=== PATIENT | male | born 1990 | race African-American/Black ===

== ENCOUNTER 2017-05-20 18:10 | Emergency (ER) | payer MEDICAID ==
[~2017-05-20] VITALS: Ht 172.7 cm; Wt 59.0 kg
[2017-05-20 18:20] VITALS: BP_SYST 128
--- NOTE | 2017-05-20 18:25 | NUR ---
Pt placed to ER bed 03, report received from JOSH Bojorquez. Pt c/o fever with back ache and abd pain x 2 days. Pt states that he took benadryl yesterday and Motrin today at 09:00 and fever dropped a "little bit" then came back up. Pt hasn't taken any other medications since. Pt states that he did feel nauseated earlier today. Denies vomiting or diarrhea, no cough.
--- NOTE | 2017-05-20 18:35 | NUR ---
Dr. Villegas at bedside to assess pt.
[2017-05-20] MEDS ORDERED: ONDANSETRON HCL 4 MG/2 ML VIAL IVP ONE (18:45)
[2017-05-20] MEDS ORDERED: ACETAMINOPHEN 500 MG TABLET PO ONE (18:45)
[2017-05-20] MEDS ORDERED: NACL 0.9% 1,000 ML IV ONE (18:45)
--- NOTE | 2017-05-20 19:00 | NUR ---
Pt report given to JOSH Tate.
[2017-05-20 19:13] LABS: HEMATOCRIT 42.4 % (36-54); HEMOGLOBIN 13.9 g/dL (14.0-18.0); LYMPHOCYTES # (AUTO) 0.7 K/uL (1.0-5.5); LYMPHOCYTES % (AUTO) 6.3 % (20.5-51.5); MEAN CORPUSCULAR HEMOGLOBIN 28 pg (27-31); MEAN CORPUSCULAR HGB CONC 33 % (32-36); MEAN CORPUSCULAR VOLUME 84 fL (79.0-98.0); MONOCYTES # (AUTO) 1.2 K/uL (0.0-1.0); MONOCYTES % (AUTO) 10.7 % (1.7-9.3); PLATELET COUNT (AUTO) 144 K/uL (130-430); RED BLOOD CELL COUNT(AUTO) 5.03 MIL/uL (4.2-6.2); RED CELL DISTRIBUTION WIDTH 13.5 % (9.0-15.0); WHITE BLOOD COUNT (AUTO) 11.6 K/uL (4.8-10.8)
[2017-05-20 19:14] LABS: NEUTROPHILS # (AUTO) 9.7 K/uL (1.8-7.7)
[2017-05-20 19:54] LABS: CALCIUM 9.1 mg/dL (8.4-11.0); CREATININE 1.01 mg/dL (0.55-1.30); POTASSIUM 3.9 mmol/L (3.5-5.1)
[2017-05-20 19:58] LABS: ALBUMIN 3.6 g/dL (3.4-4.8); TOTAL BILIRUBIN 0.5 mg/dL (0.0-1.0)
[2017-05-20 20:27] LABS: BILIRUBIN,URINE 1+ (NEGATIVE); BLOOD, URINE NEGATIVE (NEGATIVE); CLARITY/URINE CLEAR (CLEAR); COLOR,URINE YELLOW (YELLOW); GLUCOSE,URINE NEGATIVE (NEGATIVE); KETONES,URINE 2+ (NEGATIVE); LEUKOCYTE ESTERASE ,URINE NEGATIVE (NEGATIVE); NITRITE, URINE NEGATIVE (NEGATIVE); PROTEIN URINE 1+ (NEGATIVE); UROBILINOGEN,URINE 0.2 (0.2-1.0)
[2017-05-20 20:39] LABS: BACTERIA,URINE None Seen /HPF (None Seen); MUCUS,URINE 4+ /LPF (None Seen); RBC,URINE 0-3 /HPF (0-3); WBC,URINE 0-3 /HPF (0-3)
[2017-05-20] MEDS ORDERED: MAGNESIUM CITRATE 300 ML ORAL SOLUTION PO ONE (21:00)
[2017-05-20 21:03] VITALS: BP_SYST 113
--- NOTE | 2017-05-20 21:03 | NUR ---
Patient given written and verbal discharge instructions and verbalizes understanding. ER MD discussed with patient the results and treatment provided. Patient in stable condition. ID arm band removed. IV catheter removed intact and dressing applied, no active bleeding. Rx of Miralax, bentyl, zofran and motrin given. Patient educated on pain management and to follow up with PMD in 2-3 days. Pain Scale 0/10 Opportunity for questions provided and answered.
== END 2017-05-20 21:03 | disposition home or self-care (01) ==
LOC: SED 18:10
DX: B34.9 Viral infection, unspecified (principal); K59.00 Constipation, unspecified; R03.0 Elevated blood-pressure reading, without diagnosis of hypertension; F17.210 Nicotine dependence, cigarettes, uncomplicated; Z71.6 Tobacco abuse counseling; Z90.49 Acquired absence of other specified parts of digestive tract
CPT/HCPCS: 36415; 71010; 74176; 80053; 81000; 83605; 83690; 85025; 86710; 87040; 96361; 96374; 99285; J2405; J7030